=== PATIENT | female | born 1950 | race Caucasian/White ===

== ENCOUNTER → 2018-11-16 | Outpatient (CLI) | payer MEDICARE, BC ==
[~2018-11-16] MED LIST: IOHEXOL 300 MG/ML 75 ML VIAL. IV ONE
--- NOTE | 2018-11-16 11:02 | RAD ---
CT of the chest, abdomen and pelvis with contrast, 11/16/2018: HISTORY: Weight loss Multidetector CT imaging was performed following an IV bolus injection of iodinated contrast material. No oral contrast material was administered for this exam as requested. Comparison is made to a CT chest exam from 02/23/2017. A left-sided transvenous pacing device is in place with a lead extending into the right ventricle. There is moderate calcific plaquing of the thoracic aorta and its branches without evidence of aneurysm. The heart is at the upper limits of normal in size. A previously seen large pericardial effusion has resolved. There is a mildly enlarged precarinal lymph node measuring 1.4 cm. It appears to have increased slightly in size since the previous study. A slightly smaller AP window lymph node is also noted. No hilar adenopathy is seen. Numerous small bilateral axillary lymph nodes are present. Some of these have increased in size since the previous study. The largest of these measures approximately 1 cm in short axis dimension. There are a few scattered linear parenchymal opacities in the lungs compatible with scarring. There is minimal bilateral apical pleural-parenchymal scarring. There is mild atelectasis and/or scarring medially in the right middle lobe which has worsened slightly since the 03/09/2007 exam. There is a calcified granuloma in the left lower lobe. There is no evidence of pleural fluid. The liver is enlarged measuring nearly 20 cm in craniocaudad extent. There is a vague area of decreased density posteriorly in the right lobe of the liver with an overlying indentation in the hepatic contour. This may represent a scar. Calcified granulomata are present in the liver and spleen. The gallbladder is unremarkable. No pancreatic abnormality is seen. The spleen is of normal size. There is mild bilateral renal cortical scarring. A 1.3 cm cyst is present laterally in the left kidney. There are couple of small subcentimeter low-density cortical lesions in the right kidney which are too small to definitively characterize but are also probably cysts. Tiny radiopacities in the renal collecting systems probably represent early excretion of IV contrast on a technical basis. Small nonobstructing calculi are less likely. The adrenal glands are unremarkable. Moderate aortoiliac calcific plaquing is present without evidence of aneurysm. A portocaval lymph node of borderline size is unchanged since 03/09/2007. No definite abdominal or pelvic adenopathy is seen. Numerous lymph nodes are evident at both groin levels without definite pathologic enlargement. The bowel loops are not dilated. No free fluid or free air is evident in the abdomen or pelvis. There are moderate scattered degenerative changes in the spine, most severe at the L3-4 and L4-5 disc levels. IMPRESSION: 1. Borderline mediastinal and bilateral axillary adenopathy. 2. Pleural/parenchymal scarring in the lungs. 3. Mild chronic atelectasis medially in the right middle lobe. 4. Mild hepatomegaly with a nonspecific low density lesion in the posterior aspect of the right lobe, which may be a scar. 5. Bilateral renal cysts. PQRS Compliance Statement: One or more of the following individualized dose reduction techniques were utilized for this examination: 1. Automated exposure control 2. Adjustment of the mA and/or kV according to patient size 3. Use of iterative reconstruction technique Electronically signed by: Trent Huizar MD (11/16/2018 10:58 AM) [facility]
== END | disposition home or self-care (01) ==
LOC: CT 08:28
PROVIDERS: ATTEND Family Medicine
DX: N28.1 Cyst of kidney, acquired (principal); R16.0 Hepatomegaly, not elsewhere classified; J98.4 Other disorders of lung; J84.10 Pulmonary fibrosis, unspecified; J98.11 Atelectasis; I70.0 Atherosclerosis of aorta; M47.816 Spondylosis without myelopathy or radiculopathy, lumbar region; E11.40 Type 2 diabetes mellitus with diabetic neuropathy, unspecified; J44.9 Chronic obstructive pulmonary disease, unspecified; I11.0 Hypertensive heart disease with heart failure; I50.9 Heart failure, unspecified; I48.91 Unspecified atrial fibrillation; Z79.891 Long term (current) use of opiate analgesic; Z95.0 Presence of cardiac pacemaker; Z88.8 Allergy status to other drugs, medicaments and biological substances
CPT/HCPCS: 71260; 74177; Q9967

== ENCOUNTER → 2019-01-22 | Outpatient (CLI) | payer MEDICARE, BC ==
--- NOTE | 2019-01-22 12:10 | CARD ---
MR#: [id number] Date of Study: 01/22/2019 Ordering Physician: JOSE MIGUEL CHOI, Referring Physician: JOSE MIGUEL CHOI, Tech: Nyla Castellanos GRZEGORZ APPROVED REPORT EXAM: Two-dimensional and M-mode echocardiogram with Doppler and color Doppler. Other Information Quality : AverageHR: 73bpm Rhythm : Pacemaker INDICATION Atrial Fibrillation Surgery/Intervention Pacemaker: RISK FACTORS Smoking 2D DIMENSIONS RVDd3.3 (2.9-3.5cm)Left Atrium(2D)4.6 (1.6-4.0cm) IVSd1.1 (0.7-1.1cm)Aortic Root(2D)2.9 (2.0-3.7cm) LVDd4.6 (3.9-5.9cm)LVOT Diameter1.9 (1.8-2.4cm) PWd1.3 (0.7-1.1cm)LVDs2.8 (2.5-4.0cm) FS (%) 39.7 %SV67.2 ml LVEF(%)69.0 (>50%) M-Mode DIMENSIONS Left Atrium(MM)4.93 (2.5-4.0cm)Aortic Root3.19 (2.2-3.7cm) Aortic Valve AoV Peak Driss.177.2cm/sAoV VTI34.6cm AO Peak GR.12.6mmHgLVOT Peak Driss.75.6cm/s LVOT VTI 14.17cmAO Mean GR.7mmHg MARYANN (VMAX)1.53ww2UOZ (VTI)1.11cm2 AI P 1/2 Okgt434st Mitral Valve MV E Sdjkwmmv045.2cm/sMV E Peak Gr.15mmHg MV DECEL [id number] A Rqwuidvs77.8cm/s MV E Mean Gr.5mmHgE/A Ratio3.2 Pulmonary Valve PV Peak Cpyoawlg291.7cm/sPV Peak Grad.8mmHg Tricuspid Valve TR P. Hpvlyzid964sg/sRAP MJEOBMJI2wvYy TR Peak Gr.84ifXaORUE45dvPc LEFT VENTRICLE The left ventricle is normal size. There is mild concentric left ventricular hypertrophy. The left ve ntricular systolic function is normal and the ejection fraction is within normal range. The Ejection Fraction is 60-65%. There is normal LV segmental wall motion. Transmitral Doppler flow pattern is abn ormal. RIGHT VENTRICLE The right ventricle is normal size. There is normal right ventricular wall thickness. The right ventr icular systolic function is normal. Device lead noted in RV/RA. ATRIA The left atrium is mild to moderately dilated. The right atrium is mildly dilated. The interatrial se ptum is intact with no evidence for an atrial septal defect or patent foramen ovale as noted on 2-D o r Doppler imaging. AORTIC VALVE The aortic valve is mildly to moderately calcified. Doppler and Color Flow revealed mild aortic regur gitation. There is mild aortic stenosis. Calculated aortic valve maximum pressure gradient of 13 mmHg and mean pressure gradient of 7 mmHg. MITRAL VALVE Mitral annular calcification is mild to moderate. The mitral valve is calcified and displays decrease d opening. There is no evidence of mitral valve prolapse. There is mild mitral valve stenosis. Dopple r and Color-flow revealed mild mitral regurgitation. TRICUSPID VALVE The tricuspid valve is normal in structure and function. Doppler and Color Flow revealed mild tricusp id regurgitation. The PA pressure was estimated at 60 mmHg. There is no tricuspid valve prolapse or v egetation. There is no tricuspid valve stenosis. PULMONIC VALVE The pulmonic valve is not well visualized. GREAT VESSELS The aortic root is normal in size. The ascending aorta is normal in size. The IVC is normal in size a nd collapses >50% with inspiration. PERICARDIAL EFFUSION There is no evidence of significant pericardial effusion. Critical Notification Critical Value: No <Conclusion> The left ventricle is normal size. The left ventricular systolic function is normal and the ejection fraction is within normal range. The Ejection Fraction is 60-65%. There is mild concentric left ventricular hypertrophy. Device lead noted in RV/RA. There is mild aortic stenosis. Calculated aortic valve maximum pressure gradient of 13 mmHg and mean pressure gradient of 7 mmHg. Doppler and Color Flow revealed mild aortic regurgitation. Doppler and Color-flow revealed mild mitral regurgitation. There is mild mitral valve stenosis. Doppler and Color Flow revealed mild tricuspid regurgitation. The PA pressure was estimated at 60 mmHg. Signed by : Win Ernandez MD Electronically Approved : 01/22/2019 12:09:53
--- NOTE | 2019-01-23 05:21 | RAD ---
MR#: [id number] Date of Study: 01/22/2019 Ordering Physician: JOSE MIGUEL CHOI, Referring Physician: JOSE MIGUEL CHOI, Tech: Nhi Magallon RDMS, RVT, RTR APPROVED REPORT Patient Location: OUT-PATIENT Laterality:Bilateral Indications Grayscale images of the bilateral common carotid, carotid bulbs and external and internal carotid ves sels reveals diffuse intimal hyperplasia and complex heterogeneous plaque involving the carotid bulbs bilaterally. Although there appears to be approximately 50% stenosis by grayscale images by velocity criteria ther e is overall 0 to less than 50% stenosis. Spectral waveforms and color Doppler in the bilateral inter nal carotid vessels reveal velocities consistent with less than 50% stenosis. Normal ICA to CCA ratio s are noted bilaterally. Bilateral external carotid velocities are within normal limits. Bilateral ve rtebral velocities are antegrade.0 Critical Notification Critical Value: No <Conclusion> 1. Moderate heterogeneous plaque involving the bilateral carotid bulbs without any evidence of signif icant stenosis by velocity criteria. Signed by : Jose Miguel Choi, Electronically Approved : 01/23/2019 05:20:54
== END | disposition home or self-care (01) ==
LOC: ECHO 07:28
PROVIDERS: ATTEND Internal Medicine Cardiovascular Disease
DX: I65.23 Occlusion and stenosis of bilateral carotid arteries (principal); I08.3 Combined rheumatic disorders of mitral, aortic and tricuspid valves; I48.2 Chronic atrial fibrillation; F17.200 Nicotine dependence, unspecified, uncomplicated
CPT/HCPCS: 93306; 93880

== ENCOUNTER → 2019-07-02 | Outpatient (CLI) | payer MEDICARE, BC ==
[2019-07-02] MEDS: REGADENOSON 0.4 MG/5 ML DISP.SYRIN. IV ONE (08:30)
--- NOTE | 2019-07-02 10:56 | RAD ---
MR#: [id number] Date of Study: 07/02/2019 Ordering Physician: JOSE MIGUEL CHOI, Referring Physician: JONY MARSHALL Tech: RT Jeannine (R) (N) APPROVED REPORT Test Type: Pharmacological Test Indications: Dyspnea Cardiac History: See EHR Resting Heart Rate: 100 bpm Resting Blood Pressure: 123/56mmHg Pretest Chest Pain: None Pharm. Details Pharmacologic stress testing was performed using 0.4mg per 5ml of regadenoson given intravenously ove r 7-10 seconds. Stress Symptoms Dyspnea POST EXERCISE Reason for Termination: Infusion complete Max HR: 124 bpm Chest Pain: No. Arrhythmia: No. ST Change: No. INTERPRETATION Stress EKG Conclusion: No evidence of stress induced EKG changes. Imaging Protocol IMAGE PROTOCOL: Stress Tc-99m/rest Tc-99m 2 days Rest: Stress: Viability: Radiopharm.Tc99m Sestamibi Vhnk71bYh Duration 15min. Img Date 07/02/2019 Inj-Img [id number]. Stress Admin Site: IV - Left AntecubitalAdministrator: RT Jeannine (R)(N) STRESS DATA End Diast. Vol.125.0mlAv. Heart Rate72.0bpm End Syst. Vol.34.0mlCO Index BSA0.0L/min Myocardial Hnge262.0gEject. Svwkqtpr57.0% Stress Rates Pk. Fill Rate3.09EDV/secLVtime Pk. Fill 79.63msec Pk. Empty Rate3.66ESV/secLVtime Pk. Tfayz060.48msec 11/08 Pk. Fill2.08EDV/sec Stress Scores Regional WT2.00Summed WT18.00 Regional WM0.00Summed WM8.00 LV Perfusion Normal perfusion at stress. Wall Motion Normal wall motion at stress. LV Perf. Quant 17 Seg. SSS1.00 Stress Defect Extent (% LAD)0.00Rest Defect Extent (% LAD)Rev. Defect Extent (% LAD)0.00 Stress Defect Extent (% LCX) 0.00Rest Defect Extent (% LCX)Rev. Defect Extent (% LCX)0.00 Stress Defect Extent (% RCA)0.00Rest Defect Extent (% RCA)Rev. Defect Extent (% RCA)0.00 Stress Defect Extent (% MORAIMA)0.00Rest Defect Extent (% MORAIMA)Rev. Defect Extent (% MORAIMA)0.00 Other Information Quality:Good Risk Assessment: Low Risk Conclusion 1. No evidence of EKG changes with stress testing. 2. Normal perfusion at stress. 3. Low risk study. 4. EF > 60%. Signed by : Jose Miguel Choi, Electronically Approved : 07/02/2019 10:55:48
== END | disposition home or self-care (01) ==
LOC: NM 07:23
PROVIDERS: ATTEND Internal Medicine Cardiovascular Disease
DX: R06.00 Dyspnea, unspecified (principal)
CPT/HCPCS: 78452; 93017; A9500; J2785

== ENCOUNTER → 2020-07-07 | Outpatient (CLI) | payer MEDICARE, BC ==
--- NOTE | 2020-07-07 14:58 | CARD ---
MR#: [id number] Date of Study: 07/07/2020 Ordering Physician: JOSE MIGUEL CHOI, Referring Physician: JOSE MIGUEL CHOI, Tech: Gabrielle Rolle [facility] APPROVED REPORT EXAM: Two-dimensional and M-mode echocardiogram with Doppler and color Doppler. Other Information Quality : Fair Rhythm : Atrial FibrillationTechnically limited study due to lung interference INDICATION COPD Atrial Fibrillation Pacemaker 2D DIMENSIONS RVDd3.2 (2.9-3.5cm)Left Atrium(2D)5.7 (1.6-4.0cm) IVSd1.2 (0.7-1.1cm)Aortic Root(2D)3.0 (2.0-3.7cm) LVDd4.9 (3.9-5.9cm)LVOT Diameter2.1 (1.8-2.4cm) PWd1.4 (0.7-1.1cm)LVDs3.2 (2.5-4.0cm) FS (%) 33.3 %SV68.1 ml Aortic Valve LVOT Peak Driss.82.3cm/sLVOT VTI 18.33cm AI P 1/2 [id number] Mitral Valve MV E Peak Gr.23mmHgMV E Mean Gr.7mmHg Tricuspid Valve TR P. Ggxvknbm010ah/sRAP DGQNDCNT10msJe TR Peak Gr.55swYmQSJU39oeZd Pulmonary Vein S1 Rlwttbzc61.9cm/sD2 Vyjodmwd26.7cm/s LEFT VENTRICLE The left ventricle is normal size. There is mild concentric left ventricular hypertrophy. The left ve ntricular systolic function is normal and the ejection fraction is within normal range. The Ejection Fraction is 55-60%. There is normal LV segmental wall motion. RIGHT VENTRICLE The right ventricle is normal size. The right ventricular systolic function is normal. ATRIA The left atrium is mildly to moderately dilated. The right atrium is mildly to moderately dilated. Th e interatrial septum is intact with no evidence for an atrial septal defect or patent foramen ovale a s noted on 2-D or Doppler imaging. AORTIC VALVE The aortic valve is calcified but opens well. Doppler and Color Flow revealed mild aortic regurgitati on. There is no significant aortic valvular stenosis. MITRAL VALVE The mitral valve is calcified but opens well. Mitral annular calcification is mild. There is no evide nce of mitral valve prolapse. Its difficult to assess for mitral valve stenosis due to atrial fibrill ation. Doppler and Color-flow revealed mild to moderate mitral regurgitation. TRICUSPID VALVE The tricuspid valve is normal in structure and function. Doppler and Color Flow revealed mild to mode rate tricuspid regurgitation. The PA pressure was estimated at 80 mmHg. There is no tricuspid valve s tenosis. PULMONIC VALVE The pulmonic valve is not well visualized. Doppler and Color Flow revealed mild pulmonic valvular reg urgitation. There is no pulmonic valvular stenosis. GREAT VESSELS The aortic root is normal in size. The ascending aorta is not well seen. The IVC is dilated and unres ponsive. PERICARDIAL EFFUSION There is no evidence of significant pericardial effusion. Critical Notification Critical Value: No <Conclusion> The left ventricle is normal size. The left ventricular systolic function is normal and the ejection fraction is within normal range. The Ejection Fraction is 55-60%. There is mild concentric left ventricular hypertrophy. Doppler and Color Flow revealed mild aortic regurgitation. There is no significant aortic valvular stenosis. Doppler and Color-flow revealed mild to moderate mitral regurgitation. Doppler and Color Flow revealed mild to moderate tricuspid regurgitation. The PA pressure was estimated at 80 mmHg. Signed by : Win Ernandez MD Electronically Approved : 07/07/2020 14:57:44
== END | disposition home or self-care (01) ==
LOC: ECHO 09:57
PROVIDERS: ATTEND Internal Medicine Cardiovascular Disease
DX: I08.8 Other rheumatic multiple valve diseases (principal); I48.91 Unspecified atrial fibrillation
CPT/HCPCS: 93306